=== PATIENT | male | born 1945 | race Two or more races ===

== ENCOUNTER 2020-08-03 07:50 | Outpatient (CLI) | payer OTHER | END 2020-08-03 08:08 | disposition home or self-care (01) | LOC: NUCLEAR 07:50 | PROVIDERS: ATTEND Internal Medicine | DX: E04.1 Nontoxic single thyroid nodule (principal); E05.80 Other thyrotoxicosis without thyrotoxic crisis or storm | CPT/HCPCS: 78012; A9531 ==

== ENCOUNTER 2020-08-04 08:15 | Outpatient (CLI) | payer OTHER | END 2020-08-04 08:23 | disposition home or self-care (01) | LOC: NUCLEAR 08:15 | PROVIDERS: ATTEND Internal Medicine | DX: E04.1 Nontoxic single thyroid nodule (principal); E05.80 Other thyrotoxicosis without thyrotoxic crisis or storm | CPT/HCPCS: 78013; A9512 ==